=== PATIENT | male | born 1980 | race Caucasian/White ===

== ENCOUNTER 2016-08-09 17:23 | Emergency (ER) | payer SELFPAY ==
[~2016-08-09] VITALS: Ht 185.4 cm; Wt 91.6 kg
[2016-08-09] MEDS ORDERED: FLEXERIL10 MG PO (19:51)
[2016-08-09] MEDS ORDERED: NAPROSYN500 MG PO (19:51)
[2016-08-09] MEDS ORDERED: PREDNISONE20 MG PO (19:51)
[2016-08-09] MEDS ORDERED: MOTRIN800 MG PO (20:06)
[2016-08-09 20:07] VITALS: BP 134/88
== END 2016-08-09 20:23 | disposition home or self-care (01) ==
LOC: EME 17:23 → RME 17:23
DX: M62.830 Muscle spasm of back (principal); M54.5 Low back pain
CPT/HCPCS: 99281; 99284; J7512

== ENCOUNTER 2016-10-25 13:08 | Emergency (ER) | payer OTHER ==
[~2016-10-25] VITALS: Ht 185.4 cm; Wt 92.2 kg
[~2016-10-25 13:08] MED LIST: FLEXERIL10 MG PO; MOTRIN800 MG PO; NAPROSYN500 MG PO; PREDNISONE20 MG PO
[2016-10-25 13:44] VITALS: BP 138/91
[2016-10-26] MEDS ORDERED: FIORICET,ESG1 TABLET PO (10:11)
[2016-10-26] MEDS ORDERED: REGLAN10 MG PO (10:11)
== END 2016-10-25 15:20 | disposition left against medical advice (07) ==
LOC: EME 13:08
DX: G43.909 Migraine, unspecified, not intractable, without status migrainosus (principal); Z53.21 Procedure and treatment not carried out due to patient leaving prior to being seen by health care provider

== ENCOUNTER 2016-10-26 08:56 | Emergency (ER) | payer OTHER ==
[~2016-10-26] VITALS: Ht 185.4 cm; Wt 92.8 kg
[2016-10-26] MEDS ORDERED: REGLAN10 MG PO (10:11)
[2016-10-26] MEDS ORDERED: FIORICET,ESG1 TABLET PO (10:11)
[2016-10-26 10:53] VITALS: BP 114/72
== END 2016-10-26 10:54 | disposition home or self-care (01) ==
LOC: EME 08:56
DX: R51 Headache (principal); F17.200 Nicotine dependence, unspecified, uncomplicated
CPT/HCPCS: 99281; 99284; J1110

== ENCOUNTER 2016-11-09 10:05 | Emergency (ER) | payer OTHER ==
[~2016-11-09] VITALS: Ht 185.4 cm; Wt 92.5 kg
[~2016-11-09 10:05] MED LIST changes: +FIORICET,ESG1 TABLET PO; +REGLAN10 MG PO
[2016-11-09 11:38] LABS: ADD MIUA? YES; BILIRUBIN NEGATIVE; BLOOD SMALL; COLOR YELLOW ((YELLOW)); GLUCOSE (STRIP) NEGATIVE; KETONES NEGATIVE; LEUKOCYTES MODERATE; NITRITE NEGATIVE; PROTEIN (STRIP) 30; SPECIFIC GRAVITY 1.024 (1.000-1.030); UROBILINOGEN 0.2 MG/DL (0.2-1.0)
[2016-11-09 11:57] LABS: BACTERIA RARE /HPF; EPITHELIAL CELLS 1+ /HPF; MUCUS 1+ /LPF; UCUL ADDED? NO; WHITE BLOOD CELLS 20-30 /HPF (0-5)
[2016-11-09] MEDS ORDERED: NORCO 5/3251 TABLET PO (14:14)
[2016-11-09] MEDS ORDERED: MOBIC7.5 MG PO (14:14)
[2016-11-09] MEDS ORDERED: MEDROL DOSEPAK4 MG PO (14:16)
[2016-11-09 14:26] VITALS: BP 144/84
== END 2016-11-09 14:27 | disposition home or self-care (01) ==
LOC: EME 10:05
PROVIDERS: Physician Assistant
DX: M51.26 Other intervertebral disc displacement, lumbar region (principal); R31.9 Hematuria, unspecified; Z87.442 Personal history of urinary calculi; F17.200 Nicotine dependence, unspecified, uncomplicated
CPT/HCPCS: 72100; 74176; 81003; 99281; 99284; J1885

== ENCOUNTER 2017-02-13 09:03 | Emergency (ER) | payer OTHER ==
[~2017-02-13] VITALS: Ht 188 cm; Wt 98.3 kg
[~2017-02-13 09:03] MED LIST changes: +MEDROL DOSEPAK4 MG PO; +MOBIC7.5 MG PO; +NORCO 5/3251 TABLET PO
[2017-02-13] MEDS ORDERED: PEN-VEE K,VEET500 MG PO (09:27)
[2017-02-13] MEDS ORDERED: NAPROSYN500 MG PO (09:27)
[2017-02-13 10:07] VITALS: BP 150/96
== END 2017-02-13 10:07 | disposition home or self-care (01) ==
LOC: EME 09:03
DX: K08.89 Other specified disorders of teeth and supporting structures (principal)
CPT/HCPCS: 99281; 99283

== ENCOUNTER 2017-02-25 20:56 | Emergency (ER) | payer OTHER ==
[~2017-02-25] VITALS: Ht 188 cm; Wt 102.1 kg
[~2017-02-25 20:56] MED LIST changes: +PEN-VEE K,VEET500 MG PO
[2017-02-25 22:51] VITALS: BP 131/93
== END 2017-02-25 22:52 | disposition home or self-care (01) ==
LOC: EME 20:56
PROC: 0HQGXZZ Repair Left Hand Skin, External Approach (ICD-10-PCS; principal; 2017-02-25)
DX: S61.215A Laceration without foreign body of left ring finger without damage to nail, initial encounter (principal); W26.8XXA Contact with other sharp object(s), not elsewhere classified, initial encounter; Y93.E9 Activity, other interior property and clothing maintenance; F17.200 Nicotine dependence, unspecified, uncomplicated
CPT/HCPCS: 73140; 99281; 99284

== ENCOUNTER 2017-02-28 23:33 | Emergency (ER) | payer OTHER ==
[~2017-02-28] VITALS: Ht 188 cm; Wt 93.3 kg
[2017-03-01 01:25] LABS: HEMATOCRIT 45.8 % (38.0-50.0); MCHC 33.4 G/DL (30.0-36.0); MCV 92.9 FL (86-99); MEAN PLAT.VOLUME 9.4 uM^3 (9.0-12.4); PLATELET COUNT 311 K/uL (156-360); RBC DIS.WIDTH-CV 12.5 % (11.8-14.6); RED BLOOD COUNT 4.93 M/uL (4.00-5.50)
[2017-03-01 01:39] LABS: CHLORIDE 97 mEq/L (99-109); POTASSIUM 3.9 mEq/L (3.7-5.4); SODIUM 142 mEq/L (136-147)
[2017-03-01 01:41] LABS: GLUCOSE 98 mg/dL (70-99)
[2017-03-01 01:42] LABS: ANION GAP 12 MEQ/L (2-14)
[2017-03-01 01:43] LABS: TOTAL BILIRUBIN 0.4 mg/dL (0.0-1.0)
[2017-03-01 01:44] LABS: ALKALINE PHOSPHATASE 77 IU/L (3-129)
[2017-03-01 01:45] LABS: GFR ESTIMATE (CALCULATED) 57 mL/min/
[2017-03-01 01:46] LABS: UREA NITROGEN (BUN) 11 mg/dL (9-23)
[2017-03-01 01:48] LABS: LIPASE 22 U/L (1.0-51.0)
[2017-03-01 02:04] LABS: ADD MIUA? YES; BILIRUBIN NEGATIVE; BLOOD MODERATE; COLOR YELLOW ((YELLOW)); GLUCOSE (STRIP) NEGATIVE; KETONES NEGATIVE; LEUKOCYTES NEGATIVE; NITRITE NEGATIVE; PROTEIN (STRIP) NEGATIVE; SPECIFIC GRAVITY 1.008 (1.000-1.030); UROBILINOGEN 0.2 MG/DL (0.2-1.0)
[2017-03-01 02:08] LABS: BACTERIA RARE /HPF; EPITHELIAL CELLS RARE /HPF; HYALINE CASTS 0-5 /LPF; MUCUS NONE SEEN /LPF; RED BLOOD CELLS 0-5 /HPF (0-5); UCUL ADDED? NO; WHITE BLOOD CELLS 0-5 /HPF (0-5)
[2017-03-01 02:31] LABS: BASE EXCESS 9.2 mEq/L (-3 to +3); BICARBONATE 34.8 mEq/L (22-26); CARBOXY HGB 6.8 % (0-5); COMMENTS - BLOOD GASES C+; METHEMOGLOBIN 1.1 % (0-1.5); PCO2 49 mm Hg (35-45); PO2 63 mm Hg (80-100); SITE LR; pH 7.46 (7.35-7.45)
[2017-03-01 02:32] LABS: AMPHETAMINE NEGATIVE (500 ng/mL); BARBITURATES NEGATIVE (200 ng/mL); BENZODIAZEPINES NEGATIVE (150 ng/mL); COCAINE NEGATIVE (150 ng/mL); INTERNAL CONTROLS VALID? YES; METHADONE NEGATIVE (200 ng/mL); METHAMPHETAMINE NEGATIVE (500 ng/mL); OPIATES (MORPHINE) PRESUMPTIVE POSITIVE (100 ng/mL); OXYCODONE PRESUMPTIVE POSITIVE (100 ng/mL); PHENCYCLIDINE NEGATIVE (25 ng/mL); PROPOXYPHENE NEGATIVE (300 ng/mL); THC CANNABINOIDS NEGATIVE (50 ng/mL); TRICYCLIC ANTIDEPRESSANTS NEGATIVE (300 ng/mL)
[2017-03-01 02:33] LABS: ADD MEDTOX COMMENT Y
[2017-03-01 02:38] LABS: CREATINE KINASE 153 IU/L (1-294)
[2017-03-01 03:58] LABS: D-DIMER ELISA < 150.00 ng/mLDDU (<230)
[2017-03-01 04:34] VITALS: BP 138/97
== END 2017-03-01 04:36 | disposition home or self-care (01) ==
LOC: EME 23:33
PROVIDERS: Emergency Medicine
DX: J44.9 Chronic obstructive pulmonary disease, unspecified (principal); R53.83 Other fatigue; E86.0 Dehydration; R41.82 Altered mental status, unspecified; F17.200 Nicotine dependence, unspecified, uncomplicated
CPT/HCPCS: 36600; 70450; 71020; 80053; 81003; 82550; 82803; 83690; 84999; 85027; 85379; 93005; 99281; 99284; J7030